=== PATIENT | male | born 1960 | race Caucasian/White ===

== ENCOUNTER → 2018-02-14 11:08 | Outpatient (CLI) | payer OTHER, SELFPAY ==
--- NOTE | 2018-02-14 | LES_PTH ---
PATIENT: MALU GANDHI LOC: [facility] U#:[id number] AGE/SX: 64/M ROOM: RE02/14/[address]: Dr. 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 Negative for malignancy. SJ:dee 02/16/18 MICROSCOPIC DESCRIPTION Slides are reviewed. GROSS DESCRIPTION Received in fixative is one container labeled with the patient's name and designated left cheek. The specimen consists of a round piece of kelley mucosal tissue measuring 0.4 x 0.4 x 0.3 cm. The entire specimen is submitted in one cassette. / SJ:rg 02/15/18 TC:5 CPT: 57287
== END ==
PROVIDERS: Visit Provider Dentist Oral and Maxillofacial Surgery
DX: L98.9 Disorder of the skin and subcutaneous tissue, unspecified (principal)
CPT/HCPCS: 88305